=== PATIENT | female | born 1965 | race Caucasian/White ===

== ENCOUNTER 2017-07-08 21:31 | Emergency (ER) | payer OTHER, BC | END 2017-07-08 23:21 | disposition home or self-care (01) | LOC: E/R 23:21 | DX: S63.501A Unspecified sprain of right wrist, initial encounter (principal); I10 Essential (primary) hypertension; W01.0XXA Fall on same level from slipping, tripping and stumbling without subsequent striking against object, initial encounter; Y92.89 Other specified places as the place of occurrence of the external cause | CPT/HCPCS: 73110; 73110-RT; 99283-25 ==